=== PATIENT | male | born 1960 | race Caucasian/White ===

== ENCOUNTER → 2017-10-04 12:00 | Outpatient (CLI) | payer BC, SELFPAY ==
[2017-10-04 14:30] LABS: Anion Gap 8 (5-15); BUN 15 mg/dL (7-18); BUN/Creat Ratio 14.3 RATIO (10-20); Calcium,Total 8.3 mg/dL (8.5-10.1); Chloride 105 mmol/L (98-107); Cholesterol 132 mg/dL (200); Creatinine, Serum 1.05 mg/dL (0.70-1.30); EST Glomerular Filtration Rate 78 mL/min (>60); Est Glom Filt Rate - Afr Amer 94 mL/min (>60); Glucose 90 mg/dL (74-106); High Density Lipoprotein 35 mg/dL; PSA,Total - Annual Screen 0.77 ng/mL (0.00-4.00); Potassium 4.1 mmol/L (3.5-5.1); Sodium Level 137 mmol/L (136-145); Triglycerides 114 mg/dL; Very Low Density Lipoprotein 23 mg/dL (5-40)
== END ==
PROVIDERS: Family Provider Family Medicine; PCP Family Medicine; Visit Provider Family Medicine
DX: R03.0 Elevated blood-pressure reading, without diagnosis of hypertension (principal); Z12.5 Encounter for screening for malignant neoplasm of prostate
CPT/HCPCS: 36415; 80048; 80061; 84153; G0103

== ENCOUNTER → 2019-04-24 12:54 | Outpatient (CLI) | payer OTHER, SELFPAY ==
[2013-10-08 19:32] VITALS: BMI 26.2
--- NOTE | 2019-04-24 13:05 | RAD_ITS ---
STUDY: X-RAY - RIGHT KNEE REASON FOR EXAM: Male, 58 years old. Right knee pain. TECHNIQUE: 4 view(s) of the knee, 3 of which are labeled as upright. COMPARISON: None. FINDINGS: An incompletely defined 2.5 x 1.9 x 2.0 cm sclerotic densities noted in the medial femoral condyle. There is mild spurring of the tibial spines and very early degenerative periarticular lipping of the lateral tibial plateau. Well-defined, smoothly lobulated 2.3 x 1.0 x 1.5 cm ossific density adjacent to the tibial tubercle may be the sequelae of old healed avulsion injury at the insertion of the patellar tendon. Normal visualized proximal fibula. There is mild periarticular spurring of the base and apex of the patella. There is no demonstrated destructive osseous lesion or acute fracture. There is degenerative arthrosis of the medial femorotibial compartment with moderately severe joint space narrowing, slight lateral subluxation of the tibia relative to the femur, and a genu varus deformity. Normal lateral femorotibial compartment. There is borderline to mild degenerative arthrosis of the patellofemoral articulation. There is no demonstrated joint effusion. The soft tissue structures are unremarkable. RAD/Knee 4 or More Views IMPRESSION: 1. Degenerative changes of the right knee, as described, is prominent in the medial femorotibial compartment. 2. Elongated ossicle adjacent to the tibial tubercle may be the sequelae of old healed injury of the tibial insertion of the patellar tendon. 3. 2.5 cm sclerotic density in the medial femoral condyle may be a benign osteoma. Other pathology not excluded, however, and one might consider correlation with bone scan to determine if this is an active lesion. Electronically Signed: Keith Smyth MD at 18:50 EDT , Service support ,
== END ==
PROVIDERS: Family Provider Family Medicine; PCP Family Medicine; Referring Provider Family Medicine; Visit Provider Family Medicine
DX: M25.561 Pain in right knee (principal)
CPT/HCPCS: 73564

== ENCOUNTER → 2019-05-14 08:01 | Outpatient (CLI) | payer OTHER, SELFPAY ==
--- NOTE | 2019-05-14 08:04 | NM_ITS ---
CLINICAL: 59-year-old male with reported history of right knee pain. WHOLE BODY 99m Tc MDP RADIONUCLIDE BONE SCINTIGRAPHY COMPARISON: Plain film radiograph report right knee 04/24/2019 FINDINGS: Following the intravenous administration of 25.2 mCi of 99m Tc MDP, whole body bone images reveal: 1. Asymmetric increased radiopharmaceutical concentration is defined in the medial right femoral metaphysis-condyle corresponding to the radiographic abnormality noted on plain film x-ray report right knee 04/24/2019. 2. Facilitated tracer concentration is identified in the acromioclavicular and sternoclavicular compartments of both shoulders, bilateral wrist articulations, mid cervical spine posteriorly on the left, the patellofemoral and medial femoral compartments of the left knee. 3. The remaining skeletal structures are scintigraphically unremarkable with normal-appearing renal images and urinary bladder activity identified. NM/Bone Scan Whole Body IMPRESSION: 1. The increase in radiopharmaceutical concentration identified in the medial distal right femoral metaphysis appears to correlate with radiographic changes defined on plain film x-ray of the right knee dated 04/24/2019. 2. Degenerative arthritis appears expressed in the bilateral shoulder and wrist articulations, left knee, mid cervical spine. Electronically Signed: Jv Colin DO at 23:04 EDT Tel , Service support ,
== END ==
PROVIDERS: Family Provider Family Medicine; PCP Family Medicine; Referring Provider Family Medicine; Visit Provider Family Medicine
DX: M89.9 Disorder of bone, unspecified (principal)
CPT/HCPCS: 78306

== ENCOUNTER → 2019-06-18 07:14 | Outpatient (CLI) | payer OTHER, SELFPAY ==
--- NOTE | 2019-06-18 07:45 | MRI_ITS ---
STUDY: MRI LOWER EXTREMITY RIGHT THIGH WITH AND WITHOUT CONTRAST REASON FOR EXAM: Male, 59 years old. 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 IV Dotarem 17 was administered for the contrast portion of the examination. COMPARISON: X-ray's 04/24/2019, bone scan 05/14/2019 FINDINGS: Normal subcutis adipose space. Normal quadriceps, adductor and hamstring muscles. Normal quadriceps extensor mechanism with a normal rectus femoris, vastus medialis, intermedius and lateralis muscles. There is a 1.5 cm lesion which is hypointense on all sequences and without appreciable contrast enhancement or surrounding edema but with some irregular margins within the medial femoral condyle felt to likely represent a bone island. There is some marrow edema and inferior to this lesion likely consistent with subchondral edema. This likely corresponds to the uptake seen on MRI. Correlation with dedicated knee MR would be useful. MRI/Lower Ext No Joint W/WO Cont IMPRESSION: Suspect 1.5 cm bone island in the medial femoral condyle with probable medial compartment arthrosis. Correlation with dedicated knee MRI with contrast is recommended. Electronically Signed: Jv Vázquez MD at 12:08 EDT Tel , Service support ,
== END ==
PROVIDERS: Family Provider Family Medicine; PCP Family Medicine; Referring Provider Family Medicine; Visit Provider Family Medicine
DX: R94.8 Abnormal results of function studies of other organs and systems (principal)
CPT/HCPCS: 73720; A9575

== ENCOUNTER → 2019-10-28 07:28 | Outpatient (CLI) | payer OTHER, SELFPAY ==
--- NOTE | 2019-10-28 07:34 | MRI_ITS ---
STUDY: MRI LEFT ANKLE WITHOUT CONTRAST REASON FOR EXAM: Male, 59 years old. left plantar fasciitis vs tear, stress fx calcaneus, left heel pain TECHNIQUE: Standardized fat and water weighted pulse sequences were obtained in all 3 orthogonal planes. COMPARISON: None. FINDINGS: Normal subcutis adipose space. Normal posterior tibialis tendon. There is tenosynovitis of the flexor digitorum longus tendon sheath, without a tendinosis or tendon tear. There is tenosynovitis of the flexor hallucis longus tendon sheath, with an intrinsically normal tendon. Normal peroneus longus and brevis tendons. Normal tibialis anterior tendon. Normal extensor hallucis longus tendon. Normal extensor digitorum longus tendons. Normal Achilles tendon and teno-osseous insertion. There is a plantar fasciitis with plantar fascial thickening and fascial edema, but without a focal tear. Normal plantar calcaneal tubercles. Normal intrinsic muscles of the rearfoot. Normal distal tibiofibular syndesmotic ligamentous complex. Normal lateral ligamentous complex. Normal subtalar ligaments and sinus tarsi. Normal deltoid ligamentous complexes. Normal plantar calcaneonavicular (spring) ligament. Normal tibiotalar articulation. Normal talar dome. Normal subtalar articulations. Normal talonavicular articulation. Normal calcaneocuboid articulation. Normal navicular-cuneiform articulations. MRI/Lower Ext Joint Only (Routine) IMPRESSION: 1. Mild plantar fasciitis but no tear. 2. Mild tenosynovitis of the flexor digitorum longus and flexor hallucis longus tendons. Electronically Signed: Jv Vázquez MD at 9:06 EDT Tel , Service support ,
== END ==
PROVIDERS: PCP Family Medicine; Referring Provider Podiatrist; Visit Provider Podiatrist
DX: M72.2 Plantar fascial fibromatosis (principal); M84.375A Stress fracture, left foot, initial encounter for fracture; M79.672 Pain in left foot
CPT/HCPCS: 73721

== ENCOUNTER → 2019-11-14 07:48 | Outpatient (CLI) | payer OTHER, SELFPAY ==
--- NOTE | 2019-11-14 07:51 | ART_ITS ---
Reason For Study: Raynauds disease Procedure A bilateral lower extremity continuous wave Doppler with analog waveform analysis and ankle brachial indexes. Left Segmental Pressures Left brachial= 130mmHg. Left posterior tibial artery = 179mmHg. Left dorsalis pedis artery = 172mmHg. Left digit = 144 mmHg. The left dorsalis pedis waveforms are triphasic. The left posterior tibial artery waveforms are triphasic. Right Segmental Pressures Right brachial= 135mmHg. Right posterior tibial artery = 162mmHg. Right dorsalis pedis artery = 168mmHg. Right digit = 130 mmHg. The right dorsalis pedis waveforms are triphasic. The right posterior tibial artery waveforms are triphasic. Indices The right ankle brachial index by the dorsalis pedis is 1.24. The right ankle brachial index by the posterior tibial artery is 1.20. The right digital-brachial index is 0.96. The left ankle brachial index by the dorsalis pedis is 1.27. The left ankle brachial index by the posterior tibial artery is 1.33. The left digital-brachial index is 1.07. Interpretation Summary bilateral with triphasic flow and ERIC 1.24 and 1.33. Ordering Physician: Farhan Kilgore Referring Physician: Freeman Stevens MD Performed By: Henna Garner RVT
--- NOTE | 2019-11-14 07:51 | ADU_ITS ---
Reason For Study: Raynauds disease Right Velocities Left Velocities Ext. Iliac Artery, dist = 172.4 cm./sec. Ext Iliac Artery, dist = 120.5 cm./sec. Common Femoral Artery, mid = 128.6 cm./sec. Common Femoral Artery, mid = 96.4 cm./sec. Supf Femoral Artery, prox = 97.9 cm./sec. Supf. Femoral Artery, prox = 94.8 cm./sec. Supf Femoral Artery, mid = 111.2 cm./sec. Supf. Femoral Artery, mid = 102.1 cm./sec. Supf Femoral Artery, dist. = 78.3 cm./sec. Supf. Femoral Artery, dist = 74.6 cm./sec. Profunda Femoral Artery = 83 cm./sec. Profunda Femoral Artery = 76 cm./sec. Popliteal Artery, prox. = 71 cm./sec. Popliteal Artery, proximal, = 61.4 cm./sec. Popliteal Artery, mid = 55.9 cm./sec. Popliteal Artery, mid = 65.8 cm./sec. Popliteal Artery, dist = 65.8 cm./sec. Popliteal Artery, distal = 54.8 cm./sec. Post. Tibial Artery, prox = 88.3 cm./sec. Post. Tibial Artery, prox = 100.3 cm./sec. Post. Tibial Artery, mid = 105.8 cm./sec. Post Tibial Artery, mid = 102.1 cm./sec. Post. Tibial Artery, dist = 100.3 cm./sec. Post Tibial Artery, dist. = 129.5 cm./sec. Peroneal Artery, prox = 46.2 cm./sec. Peroneal Artery, prox = 33.9 cm./sec. Peroneal Artery, mid = 54.7 cm./sec. Peroneal Artery, mid = 50.5 cm./sec. Peroneal Artery,dist = 51.9 cm./sec. Peroneal Artery,dist. = 62.7 cm./sec. Ant. Tibial Artery, prox = 49 cm./sec. Ant.Tibial Artery, prox = 47.9 cm./sec. Ant. Tibial Artery, mid = 42.4 cm./sec. Ant Tibial Artery, mid = 40.9 cm./sec. Ant. Tibial Artery, dist = 52.8 cm./sec. Ant. Tibial Artery, distal = 49.6 cm./sec. Procedure Exam performed in department. Interpretation Summary No stenosis noted in eiher lower extremity with triphasic flow throuhout. Ordering Physician: Farhan Kilgore Referring Physician: Freeman Stevens MD Performed By: Henna Garner RVT
== END ==
PROVIDERS: PCP Family Medicine; Referring Provider Surgery Vascular Surgery; Visit Provider Surgery Vascular Surgery
DX: I73.00 Raynaud's syndrome without gangrene (principal); M79.676 Pain in unspecified toe(s)
CPT/HCPCS: 93922; 93925

== ENCOUNTER → 2020-08-18 10:37 | Outpatient (CLI) | payer BC, SELFPAY ==
[2013-10-08 19:32] VITALS: BMI 26.2
[2020-08-18 12:58] LABS: Anion Gap 5 (5-15); BUN 17 mg/dL (7-18); BUN/Creat Ratio 14.9 RATIO (10-20); Calcium,Total 8.8 mg/dL (8.5-10.1); Chloride 109 mmol/L (98-107); Creatinine, Serum 1.14 mg/dL (0.70-1.30); EST Glomerular Filtration Rate 70 mL/min (>60); Est Glom Filt Rate - Afr Amer 85 mL/min (>60); Glucose 71 mg/dL (74-106); Magnesium 2.1 mg/dL (1.6-2.6); PSA,Total - Annual Screen 1.01 ng/mL (0.00-4.00); Potassium 4.1 mmol/L (3.5-5.1); Sodium Level 141 mmol/L (136-145); Thyroid Stim Hormone (TSH) 2.08 uIU/mL (0.358-3.74)
[2020-08-19 07:11] LABS: SARS-COV-2 TOTAL ABS Nonreactive (Nonreactive)
== END ==
PROVIDERS: PCP Family Medicine; Referring Provider Family Medicine; Visit Provider Family Medicine
DX: R00.2 Palpitations (principal); Z20.828 Contact with and (suspected) exposure to other viral communicable diseases; Z12.5 Encounter for screening for malignant neoplasm of prostate
CPT/HCPCS: 36415; 80048; 83735; 84153; 84443; 86769; G0103

== ENCOUNTER → 2020-11-26 11:53 | Outpatient (CLI) | payer BC, SELFPAY ==
--- NOTE | 2020-11-26 11:56 | RAD_ITS ---
INDICATION: PAIN IN LEFT KNEE EXAMINATION/TECHNIQUE: X-RAY - LEFT XR Knee Complete 4 Views or More COMPARISON: None. FINDINGS: No acute fracture or malalignment. Minimal, medial compartment predominant, tricompartmental joint space narrowing and osteophytosis. No joint effusion. The soft tissues are unremarkable. RAD/Knee 4 or More Views IMPRESSION: Minimal, medial compartment predominant, tricompartmental degenerative arthrosis of the knee. Electronically Signed: Freeman Harman MD at 16:48 EDT Tel , Service support ,
== END ==
PROVIDERS: PCP Family Medicine; Referring Provider Family Medicine; Visit Provider Family Medicine
DX: M25.562 Pain in left knee (principal)
CPT/HCPCS: 73564

== ENCOUNTER → 2021-07-05 09:33 | Outpatient (CLI) | payer BC, SELFPAY ==
[2021-07-05 12:22] LABS: Anion Gap 5 (5-15); BUN 20 mg/dL (7-18); BUN/Creat Ratio 17.5 RATIO (10-20); Calcium,Total 8.8 mg/dL (8.5-10.1); Chloride 109 mmol/L (98-107); Creatinine, Serum 1.14 mg/dL (0.70-1.30); EST Glomerular Filtration Rate 70 mL/min (>60); Est Glom Filt Rate - Afr Amer 84 mL/min (>60); Glucose 91 mg/dL (74-106); Potassium 3.9 mmol/L (3.5-5.1); Sodium Level 141 mmol/L (136-145)
[2021-07-05 12:25] LABS: Hematocrit 41.7 % (40-54); Hemoglobin 14.6 g/dL (13.0-16.5); Mean Corpuscular Hgb 31.7 pg (27.0-32.0); Mean Corpuscular Volume 90.7 fL (80-94); Mean Platelet Vol. 9.7 fl (6.2-12.0); Platelet Count 200 K/mm3 (150-450); RBC Distribution Width CV 11.6 % (11.6-14.6); RBC Distribution Width SD 38.8 fl (35.1-43.9)
== END ==
PROVIDERS: PCP Family Medicine; Referring Provider Student in an Organized Health Care Education/Training Program; Visit Provider Student in an Organized Health Care Education/Training Program
DX: Z01.818 Encounter for other preprocedural examination (principal)
CPT/HCPCS: 36415; 80048; 85027

== ENCOUNTER 2021-08-23 15:02 | Outpatient (CLI) | payer BC, SELFPAY ==
[2021-08-23 16:05] LABS: Hemoglobin 14.2 g/dL (13.0-16.5); Mean Corp Hgb Conc 33.8 g/dL (32-36); Mean Corpuscular Hgb 30.9 pg (27.0-32.0); Mean Corpuscular Volume 91.3 fL (80-94); Mean Platelet Vol. 9.9 fl (6.2-12.0); Platelet Count 206 K/mm3 (150-450); RBC Distribution Width CV 11.7 % (11.6-14.6); RBC Distribution Width SD 39.2 fl (35.1-43.9); White Blood Count 7.8 K/mm3 (4.4-11.0)
[2021-08-23 16:30] LABS: Anion Gap 5 (5-15); BUN 22 mg/dL (7-18); BUN/Creat Ratio 20.8 RATIO (10-20); Calcium,Total 8.9 mg/dL (8.5-10.1); Chloride 109 mmol/L (98-107); Creatinine, Serum 1.06 mg/dL (0.70-1.30); EST Glomerular Filtration Rate 76 mL/min (>60); Est Glom Filt Rate - Afr Amer 92 mL/min (>60); Glucose 92 mg/dL (74-106); PSA,Total - Annual Screen 1.08 ng/mL (0.00-4.00); Potassium 4.4 mmol/L (3.5-5.1); Sodium Level 141 mmol/L (136-145)
[2021-08-23 16:31] LABS: Vitamin D,25 Hydroxy 20.5 ng/mL
[2021-08-23 17:10] LABS: International Normalized Ratio 1.3
== END 2021-08-23 23:59 | disposition short-term general hospital (02) ==
LOC: MTLAB 15:03
PROVIDERS: PCP Family Medicine; Referring Provider Family Medicine; Visit Provider Family Medicine
DX: Z01.818 Encounter for other preprocedural examination (principal); Z12.5 Encounter for screening for malignant neoplasm of prostate
CPT/HCPCS: 36415; 80048; 82306; 84153; 85027; 85610; 85730; G0103

== ENCOUNTER 2021-09-02 07:57 | Outpatient (CLI) | payer BC, SELFPAY ==
--- NOTE | 2021-09-02 08:02 | CT_ITS ---
STUDY: CT LEFT LOWER EXTREMITY WITHOUT CONTRAST REASON FOR EXAM: Left knee osteoarthritis, surgical planning. TECHNIQUE: Transaxial CT imaging of the lower extremity was performed. Coronal and sagittal images were reformatted. Individualized dose optimization techniques were used for this CT. COMPARISON: Radiographs 11/26/2020. FINDINGS: Knee: There is joint space narrowing and eburnation of the medial femorotibial compartment (coronal reconstruction 30). Normal lateral femoral condyle and lateral tibial plateau. There is preservation of the articular joint space of the lateral knee compartment. There are minimal marginal osteophytes and mild joint space narrowing of the patellofemoral compartment (sagittal reconstruction 40). Normal proximal tibiofibular articulation. There is no joint effusion. The quadriceps tendon is grossly normal. The patellar tendon is grossly normal. Normal Hoffa''s fat pad. There is very mild vascular calcification. Hip: There is joint space narrowing of the superior medial left hip (coronal reconstruction 46) and a small subchondral cyst in the anterior acetabulum. Ankle: Normal tibiotalar, posterior subtalar and talonavicular articulations. CT/Extremity Lower without Contra IMPRESSION: Left knee osteoarthritis. Electronically Signed: Harinder Walters MD at 14:56 EST ,
== END 2021-09-02 23:59 | disposition short-term general hospital (02) ==
LOC: CT 07:58
PROVIDERS: PCP Family Medicine; Referring Provider Specialist; Visit Provider Specialist
DX: M21.162 Varus deformity, not elsewhere classified, left knee (principal)
CPT/HCPCS: 73700

== ENCOUNTER 2021-09-20 06:16 | Emergency (ER) | payer BC, SELFPAY ==
[2021-09-20 06:18] VITALS: BP 120/73; PULSE 61; RESP 23; TEMP 36.3; O2SAT 100; BMI 26.9
[2021-09-20 06:24] VITALS: O2SAT 100
--- NOTE | 2021-09-20 06:34 | ED.RN ---
PT VERY ANXIOUS UPON ARRIVAL. PT STATES HE'S BURNING UP, NO FEVER. ICE PACKS APPLIED. PT HYPERVENTILATING. EMOTIONAL SUPPORT PLACED. AT BEDSIDE. OXYGEN PLACED FOR EMOTIONAL SUPPORT. IV PLACED. PENDING MD.
--- NOTE | 2021-09-20 06:51 | CT_ITS ---
HISTORY: Dyspnea EXAMINATION: CTA Chest W/ Contrast Injection (and W/O Contrast Images if performed) TECHNIQUE: Helically acquired images were obtained of the chest following IV contrast as per pulmonary angiogram protocol with MIP and MPR reconstructions. A radiation dose optimization technique was used for this scan. IV Contrast dosage and agent: 100mL Isovue-370 COMPARISON: None FINDINGS: LUNGS, PLEURA AND LARGE AIRWAYS: Trace dependent hypoventilatory changes. No pulmonary edema, mass or consolidation. Airways are patent. No pleural effusion or pleural thickening. No pneumothorax. PULMONARY ARTERIES: No pulmonary arterial filling defects identified. AORTA AND GREAT VESSELS: Ectatic ascending aorta measures up to 4.2 cm diameter with gradual tapering along the aortic arch. No aortic dissection demonstrated. Mild scattered atherosclerotic calcifications. Great vessels are patent. HEART AND PERICARDIUM: Heart slightly enlarged. No significant pericardial effusion. MEDIASTINUM AND DINORA: No pathologically enlarged mediastinal or hilar lymph nodes. Esophagus is unremarkable. THYROID: Unremarkable as visualized. UPPER ABDOMEN: No acute pathology. BONES: Intact with no suspicious osseous lesion. SOFT TISSUES: No acute findings. CT/CTA Chest W/WO Contrast IMPRESSION: 1. No pulmonary embolus identified. 2. Ectatic proximal thoracic aorta with mild cardiomegaly. Individualized dose optimization techniques were used for this CT. at 0817 Reported and signed by: Cristian Henderson MD Electronically Signed: Cristian Henderson MD at 8:16 EST ,
--- NOTE | 2021-09-20 06:51 | EKG12_ITS ---
Test Reason : SOB Blood Pressure : / mmHG Vent. Rate : 050 BPM Atrial Rate : 050 BPM P-R Int : 134 ms QRS Dur : 132 ms QT Int : 502 ms P-R-T Axes : 064 -46 000 degrees QTc Int : 457 ms Sinus bradycardia with Premature supraventricular complexes Right bundle branch block Left anterior fascicular block Bifascicular block Abnormal ECG Confirmed by ZEENAT GUSTAFSON, FORREST ([id number]), production editor ALEXY TITUS ([id number]) on 09/21/2021 8:34:37 AM Referred By: GEORGINA Confirmed By:FORREST EPPERSON MD
--- NOTE | 2021-09-20 06:52 | ED.VIS.DYS ---
HPI History of Present Illness Chief Complaint: Shortness of Breath Informant: patient Onset/Context/Timing Onset: Yesterday Context: gradual Timing: Intermittent Quality: Positive for Orthopnea Worsened by: Lying flat Relieved by: - (Walking) Associated Symptoms fever, subjective and sweats; Negative for cough, rhinorrhea, ear pain, sore throat, clear sputum, white sputum, yellow sputum or green sputum Narrative Narrative: Patient presents with shortness of breath that began yesterday. Patient states he became worse today. Patient states his breathing is worse whenever he lays flat. Patient states he feels better when he is up and ambulating. Patient admits to subjective fevers and sweats. Patient denies any chest pain. Patient denies any cough. Patient denies any sore throat or rhinorrhea. Patient had a recent left partial knee replacement. PE Risk Factors: Positive for Recent surgery; Negative for Cancer, OCP + Smoking + > 35 and Prior DVT or PE PFSH PFSH Home Medications hydrocodone-acetaminophen 1 - 2 tab PO Q4H PRN PRN #20 tablet 10/08/13 [Rx Last Taken Unknown] aspirin [Aspirin Low Dose] 81 mg PO DAILY 09/20/21 [History Last Taken Unknown] famotidine 20 mg PO DAILY 09/20/21 [History Last Taken Unknown] meloxicam 7.5 mg PO DAILY 09/20/21 [History Last Taken Unknown] oxycodone 5 mg PO Q4H PRN 09/20/21 [History Last Taken Unknown] Allergy/AdvReac Type Severity Reaction Status Date / Time No Known Allergies Allergy Verified 10/08/13 19:36 Surgical History (Updated 09/20/21 @ 06:[address] Jorje Stephens DO) History of partial knee replacement Hx of arthroscopy of right knee Social History Smoking Status: Current every day smoker tobacco type: cigars ROS ROS ED Constitutional Constitutional ED: Reports fever(s), subjective and sweats; Denies chills Eyes Eyes: Denies blurry vision or change in vision ENT ENT ED: Denies rhinorrhea or sore throat Cardiovascular Cardiovascular: Denies chest pain or palpitations Respiratory/Chest Respiratory/Chest: Reports dyspnea; Denies cough Gastrointestinal Gastrointestinal: Reports nausea; Denies vomiting Genitourinary Genitourinary ED: Denies dysuria or hematuria Musculoskeletal Musculoskeletal: Denies back pain or neck pain Integumentary Denies abscess or rash Neurologic Neurologic: Denies headache(s) or weakness Allergic/Immunologic Allergic/Immunologic ED: Denies mouth swelling or urticaria EXAM Physical Exam Const Vital Signs: 09/20/21 06:18 09/20/21 06:24 Temperature 97.4 F L Temperature Source Temporal Pulse Rate 61 Respiratory Rate 23 H Respiratory Effort Non-Labored Respiratory Depth Normal Respiratory Pattern Normal Blood Pressure 120/73 Blood Pressure Mean 88 Pulse Ox 100 100 Oxygen Delivery Method Room Air Nasal Cannula Oxygen Flow Rate (L/min) 2 Positive well nourished and well developed General Appearance ED: well developed HEENT Reports moist mucous membranes Neck supple and no JVD Resp normal respiratory effort and clear to auscultation bilaterally Cardio regular rate, regular rhythm and no murmurs GI normal to inspection, nondistended, normoactive bowel sounds and non-tender Palpation: soft Extremity normal to inspection General Extremety ED: Negative for edema or tenderness General Extremity: Negative for edema Neuro oriented x3, CN's II-XII intact bilaterally and no sensory deficits noted Sensorium / Orientation: alert Motor Exam: strength 5/5 throughout Psych Mood & Affect: anxious Skin no rashes or lesions noted MDM MDM MDM Narrative Medical decision making narrative: Patient was given a dose of Ativan here. CBC, comprehensive metabolic profile, PT with INR, PTT, and troponin were ordered and are essentially within normal limits. CTA of the chest was ordered and is pending. EKG was obtained. On my interpretation, it shows sinus bradycardia with occasional PACs. There is a right bundle branch block pattern noted. There is a left anterior fascicular block. There are no acute ST or T wave changes. Care of the patient was turned over to the oncoming physician. Lab Data Labs: Laboratory Results - last 24 hr 09/20/21 09/20/21 09/20/21 06:30 06:30 06:30 WBC 8.3 RBC 4.44 L Hgb 13.6 Hct 41.6 MCV 93.7 MCH 30.6 MCHC 32.7 RDW Std Deviation 41.1 RDW Coeff of Tyrell 11.9 Plt Count 223 MPV 10.9 Immature Gran % (Auto) 0.200 Neut % (Auto) 44.1 L Lymph % (Auto) 37.4 [place] % (Auto) 15.5 H Eos % (Auto) 2.2 Baso % (Auto) 0.6 Absolute Neuts (auto) 3.7 Absolute Lymphs (auto) 3.09 Nucleated RBC % 0 PT 13.3 INR 1.1 APTT 31.0 Sodium 137 Potassium 4.1 Chloride 105 Carbon Dioxide 26.0 Anion Gap 6 BUN 18 Creatinine 1.07 Estim Creat Clear Calc 80.58 Est GFR (MDRD) Af Amer 91 Est GFR (MDRD) Non-Af 75 BUN/Creatinine Ratio 16.8 Glucose 73 L Calcium 8.7 Total Bilirubin 0.60 AST 57 H ALT 59 Alkaline Phosphatase 117 Troponin I High Sens 8 Total Protein 7.4 Albumin 3.5 Globulin 3.9 Albumin/Globulin Ratio 0.9 EKG Initial EKG: Attestation: I personally reviewed and interpreted this EKG as follows: Interpretation: Sinus Bradycardia (50 with occasional PACs), RBBB and LAFB Discharge Plan Triage Chief Complaint: Shortness of Breath ED Provider: Jorje Stephens Dx/Rx/DC Orders Prescriptions: No Action hydrocodone-acetaminophen 1 TABLET tablet 1 - 2 tab PO Q4H PRN PRN (Reason: Pain) Qty: 20 RF: 0 aspirin [Aspirin Low Dose] 81 mg Tablet,Delayed Release (Dr/Ec) 81 mg PO DAILY RF: 0 meloxicam 7.5 mg Tablet 7.5 mg PO DAILY RF: 0 famotidine 20 mg Tablet 20 mg PO DAILY RF: 0 oxycodone 5 mg Capsule 5 mg PO Q4H PRN (Reason: Pain) RF: 0 Primary Care Provider: Radames Stevens
--- NOTE | 2021-09-20 06:54 | NURSING ---
NO OLD EKGS
[2021-09-20] MEDS: LORazepam 2 MG/ML Syringe 1 MG IV (07:03)
[2021-09-20 07:04] LABS: Absolute Lymphocyte Count 3.09 X10^3/uL (0.83-4.51); Absolute Neutrophil Count 3.7 X10^3/uL (2.0-7.7); Basophil# 0.05 X10^3/uL; Basophil% 0.6 % (0-1); Eosinophil# 0.18 X10^3/uL; Eosinophils% 2.2 % (0-5); Hematocrit 41.6 % (40-54); Hemoglobin 13.6 g/dL (13.0-16.5); Lymphocyte # 3.09 X10^3/ul (0.83-4.51); Lymphocyte % 37.4 % (19-41); Mean Corp Hgb Conc 32.7 g/dL (32-36); Mean Corpuscular Hgb 30.6 pg (27.0-32.0); Mean Corpuscular Volume 93.7 fL (80-94); Mean Platelet Vol. 10.9 fl (6.2-12.0); Monocyte# 1.28 X10^3/uL; Monocyte% 15.5 % (0-10); NRBC Flagged by Analyzer 0 % (0-5); Neutrophil # 3.65 X10^3/uL (2.7-7.7); Neutrophil % 44.1 % (47-70); Platelet Count 223 K/mm3 (150-450); RBC Distribution Width CV 11.9 % (11.6-14.6); RBC Distribution Width SD 41.1 fl (35.1-43.9); Red Blood Count 4.44 M/mm3 (4.6-6.2); White Blood Count 8.3 K/mm3 (4.4-11.0)
[2021-09-20 07:09] LABS: International Normalized Ratio 1.1; Prothrombin Time (Protime)PT. 13.3 SECONDS (11.7-14.9)
[2021-09-20 07:14] LABS: ALB/GLOB Ratio 0.9 RATIO (0.9-2.4); AST(SGOT) 57 U/L (15-37); Alanine Aminotransfer ALT/SGPT 59 U/L (16-61); Albumin, Serum 3.5 g/dL (3.2-5.0); Alkaline Phosphatase 117 U/L (45-117); Anion Gap 6 (5-15); BUN 18 mg/dL (7-18); BUN/Creat Ratio 16.8 RATIO (10-20); Calcium,Total 8.7 mg/dL (8.5-10.1); Chloride 105 mmol/L (98-107); Creatinine, Serum 1.07 mg/dL (0.70-1.30); EST Glomerular Filtration Rate 75 mL/min (>60); Est Glom Filt Rate - Afr Amer 91 mL/min (>60); Estimated Creatinine Clearance 80.58 ml/min; Globulin 3.9 g/dL (2.2-4.2); Glucose 73 mg/dL (74-106); Potassium 4.1 mmol/L (3.5-5.1); Protein, Total 7.4 g/dL (6.4-8.2); Sodium Level 137 mmol/L (136-145); Troponin-I HS 8 pg/mL (3.0-78.0)
[2021-09-20 08:08] VITALS: BP 148/69; PULSE 42; O2SAT 97
== END 2021-09-20 09:04 | disposition home or self-care (01) ==
PROVIDERS: Emergency Provider Emergency Medicine; PCP Family Medicine; Visit Provider Emergency Medicine
DX: R06.02 Shortness of breath (principal); Z96.652 Presence of left artificial knee joint; F17.290 Nicotine dependence, other tobacco product, uncomplicated; R00.1 Bradycardia, unspecified; I45.2 Bifascicular block; R06.01 Orthopnea; Z79.1 Long term (current) use of non-steroidal anti-inflammatories (NSAID); Z79.82 Long term (current) use of aspirin; Z79.899 Other long term (current) drug therapy
CPT/HCPCS: 71275; 80053; 84484; 85025; 85610; 85730; 93005; 96374; 99285; Q9967; A4216

== ENCOUNTER → 2022-09-15 | Outpatient (CLI) | payer BC, SELFPAY ==
[2022-09-15 12:13] LABS: Hematocrit 43.7 % (40-54); Hemoglobin 14.8 g/dL (13.0-16.5); Mean Corp Hgb Conc 33.9 g/dL (32-36); Mean Corpuscular Hgb 31.2 pg (27.0-32.0); Mean Corpuscular Volume 92.2 fL (80-94); Mean Platelet Vol. 10.4 fl (6.2-12.0); Platelet Count 206 K/mm3 (150-450); Red Blood Count 4.74 M/mm3 (4.6-6.2)
[2022-09-15 13:40] LABS: Anion Gap 9 (5-15); BUN 18 mg/dL (7-18); BUN/Creat Ratio 16.2 RATIO (10-20); Chloride 106 mmol/L (98-107); Cholesterol 148 mg/dL (200); Creatinine, Serum 1.11 mg/dL (0.70-1.30); EST Glomerular Filtration Rate 72 mL/min (>60); Est Glom Filt Rate - Afr Amer 87 mL/min (>60); Glucose 73 mg/dL (74-106); High Density Lipoprotein 41 mg/dL; PSA,Total - Annual Screen 1.12 ng/mL (0.00-4.00); Sodium Level 140 mmol/L (136-145); Triglycerides 138 mg/dL; Very Low Density Lipoprotein 28 mg/dL (5-40)
== END | disposition home or self-care (01) ==
LOC: MFPLAB 10:03
PROVIDERS: PCP Family Medicine; Referring Provider Family Medicine; Visit Provider Family Medicine
DX: Z12.5 Encounter for screening for malignant neoplasm of prostate (principal); Z13.1 Encounter for screening for diabetes mellitus; R53.83 Other fatigue; Z13.220 Encounter for screening for lipoid disorders; E55.9 Vitamin D deficiency, unspecified
CPT/HCPCS: 36415; 80048; 80061; 82306; 84153; 84403; 84443; 85027; G0103

== ENCOUNTER → 2023-09-18 | Outpatient (CLI) | payer BC, SELFPAY ==
[2023-09-18 12:50] LABS: Vitamin D,25 Hydroxy 25.3 ng/mL
[2023-09-18 13:35] LABS: Anion Gap 5 (5-15); BUN 17 mg/dL (7-18); BUN/Creat Ratio 14.9 RATIO (10-20); Calcium,Total 8.9 mg/dL (8.5-10.1); Chloride 110 mmol/L (98-107); Cholesterol 177 mg/dL (200); Creatinine, Serum 1.14 mg/dL (0.70-1.30); EST Glomerular Filtration Rate 69 mL/min (>60); Est Glom Filt Rate - Afr Amer 84 mL/min (>60); Glucose 82 mg/dL (74-106); High Density Lipoprotein 41 mg/dL; PSA,Total - Annual Screen 1.02 ng/mL (0.00-4.00); Potassium 3.7 mmol/L (3.5-5.1); Sodium Level 139 mmol/L (136-145); Triglycerides 88 mg/dL; Very Low Density Lipoprotein 18 mg/dL (5-40)
== END | disposition home or self-care (01) ==
LOC: MFPLAB 10:02
PROVIDERS: PCP Family Medicine; Visit Provider Family Medicine
DX: Z12.5 Encounter for screening for malignant neoplasm of prostate (principal); Z13.220 Encounter for screening for lipoid disorders; Z13.1 Encounter for screening for diabetes mellitus; R79.89 Other specified abnormal findings of blood chemistry
CPT/HCPCS: 36415; 80048; 80061; 82306; 84153; G0103

== ENCOUNTER → 2024-10-17 | Outpatient (CLI) | payer BC, SELFPAY ==
[2024-10-17 16:04] LABS: Anion Gap 8 (5-15); BUN 19 mg/dL (4-19); BUN/Creat Ratio 16.7 RATIO (10-20); Calcium 9.3 mg/dL (7.6-11.0); Carbon Dioxide 25.2 mmol/L (22.0-29.0); Chloride 105 mmol/L (96-108); Creatinine, Serum 1.1 mg/dL (0.8-1.3); EST Glomerular Filtration Rate 75 (>60); Glucose 85 mg/dL (70-99); Potassium 4.3 mmol/L (3.3-5.1); Sodium Level 138 mmol/L (133-145)
== END | disposition home or self-care (01) ==
LOC: MFPLAB 11:14
PROVIDERS: PCP Family Medicine; Referring Provider Family Medicine; Visit Provider Family Medicine
DX: R03.0 Elevated blood-pressure reading, without diagnosis of hypertension (principal); Z12.5 Encounter for screening for malignant neoplasm of prostate
CPT/HCPCS: 36415; 80048; 82306; 84153; G0103

== ENCOUNTER → 2025-07-14 | Outpatient (CLI) | payer BC, SELFPAY ==
[2025-07-14 10:47] LABS: Hematocrit 43.7 % (40-54); Hemoglobin 14.6 g/dL (13.0-16.5); Mean Corp Hgb Conc 33.4 g/dL (32-36); Mean Corpuscular Volume 92.8 fL (80-94); Mean Platelet Vol. 10.2 fl (6.2-12.0); Platelet Count 218 K/mm3 (150-450); RBC Distribution Width CV 11.8 % (11.6-14.6); RBC Distribution Width SD 40.6 fl (35.1-43.9); Red Blood Count 4.71 M/mm3 (4.6-6.2); White Blood Count 7.6 K/mm3 (4.4-11.0)
[2025-07-14 11:37] LABS: Anion Gap 9 (5-15); BUN 17 mg/dL (4-19); BUN/Creat Ratio 13.7 RATIO (10-20); Calcium,Total 8.9 mg/dL (7.6-11.0); Carbon Dioxide 25.8 mmol/L (21.0-32.0); Chloride 106 mmol/L (98-108); Glucose 86 mg/dL (70-99); Magnesium 2.2 mg/dL (1.5-2.2); Potassium 4.1 mmol/L (3.3-5.1)
== END | disposition home or self-care (01) ==
LOC: MFPLAB 09:02
PROVIDERS: PCP Family Medicine; Visit Provider Family Medicine
DX: I48.91 Unspecified atrial fibrillation (principal)
CPT/HCPCS: 36415; 80048; 83735; 84443; 85027

== ENCOUNTER → 2025-08-13 | Outpatient (CLI) | payer BC, SELFPAY ==
--- NOTE | 2025-08-13 08:53 | ECHOD_ITS ---
Reason For Study Reason For Study: TAA Procedure This was a 2D Doppler, Color Flow transthoracic echocardiogram. Exam performed in department. Left Ventricle Normal-sized left ventricle. Normal left ventricular wall thickness. Normal left ventricular systolic function, with EF by Avalos's biplane: 68%. Normal left ventricular diastolic function. No regional wall motion abnormalities noted. Right Ventricle Borderline dilated right ventricle. Normal systolic function. RVSP estimated at 35 mmHg. Atria The left and right atria are normal. Right atrial pressure estimated at: 8 mmHg. Mitral Valve Normal mitral valve. Trace mitral regurgitation. No mitral stenosis. Tricuspid Valve Normal tricuspid valve. Mild tricuspid regurgitation. No tricuspid stenosis. Aortic Valve Trileaflet aortic valve. Mild aortic regurgitation. No hemodynamically significant aortic stenosis. Pulmonic Valve Normal pulmonic valve. Trace pulmonic regurgitation. No pulmonic stenosis. Great Vessels Dilated thoracic aorta. Diameter: 4.3 cm. Pericardium/Pleural No pericardial effusion. MMode/2D Measurements & Calculations LVIDd: 5.3 cm IVSd: 0.83 cm asc Aorta Diam: 4.2 cm LVIDs: 3.5 cm LVPWd: 0.92 cm RVDd: 4.4 cm FS: 34.1 % LAV(MOD-bp): 65.0 ml LVAd ap4: 28.6 cm2 LVAd ap2: 32.3 cm2 LAV(MOD-bp) Indexed: 31.5 ml/m2 LVLd ap4: 8.0 cm LVLd ap2: 8.0 cm LAV(MOD-sp2): 62.8 ml EDV(MOD-sp4): 82.7 ml EDV(MOD-sp2): 109.2 ml LAV(MOD-sp4): 63.0 ml EDV(sp4-el): 86.4 ml EDV(sp2-el): 111.1 ml LVAs ap4: 14.2 cm2 LVAs ap2: 15.7 cm2 LVLs ap4: 6.1 cm LVLs ap2: 5.9 cm ESV(MOD-sp4): 28.5 ml ESV(MOD-sp2): 34.4 ml ESV(sp4-el): 28.1 ml ESV(sp2-el): 35.5 ml EF(MOD-sp4): 65.5 % EF(MOD-sp2): 68.5 % EF(sp4-el): 67.5 % SV(MOD-sp4): 54.2 ml SV(MOD-sp2): 74.8 ml EDV(MOD-bp): 96.1 ml SI(MOD-sp4): 26.2 ml/m2 SI(MOD-sp2): 36.2 ml/m2 ESV(MOD-bp): 30.7 ml EF(MOD-bp): 68.1 % SV(sp4-el): 58.4 ml LA dimension(2D): 4.1 cm LA A4 area: 21.1 cm2 RA A4 area: 16.0 cm2 TAPSE: 2.1 cm Time Measurements MV dec time: 0.20 sec Doppler Measurements & Calculations MV E max kevin: 95.5 cm/sec Lat Peak E' Kevin: 12.0 cm/sec Med Peak E' Kevin: 9.4 cm/sec MV A max kevin: 77.3 cm/sec E/E' lat: 7.9 E/E' med: 10.2 MV E/A: 1.2 Ao V2 max: 193.9 cm/sec LV V1 max: 167.2 cm/sec MV dec slope: 473.5 cm/sec2 Ao max P.0 mmHg LV V1 max P.2 mmHg Ao V2 mean: 134.3 cm/sec LV V1 mean P.1 mmHg Ao mean P.0 mmHg LV V1 mean: 115.5 cm/sec Ao V2 VTI: 41.4 cm LV V1 VTI: 37.9 cm AV (velocity ratio): 0.92 PA V2 max: 111.9 cm/sec TR max kevin: 256.9 cm/sec TR max P.4 mmHg ECHO/Echo Complete Interpretation Summary Normal left ventricular systolic function, with EF by Avalos's biplane: 68%. Normal left ventricular diastolic function. Normal right ventricular systolic function Mild aortic regurgitation Dilated thoracic aorta. Diameter: 4.3 cm. Recommend routine surveillance of thoracic aortic dilation in 1 to 2 years. Ordering Physician: Francisco Orr Referring Physician: Freeman Stevens Performed By: Madelin Catalan RDCS
--- OUTSIDE RECORDS SUMMARY | 2025-08-13 09:11 | XMS RPT_ITS | CCD ---
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 Tasia Howe MD Primary Care Provider Rodney GUSTAFSON, Dr. Millard Attending Provider [phone] Dr. Tasia Stevens MD Referring Provider Allergies Allergy Classification Reported Allergen(s) Allergy Type Date of Onset Reaction(s) Facility (1 source) Codeine; Translations: [CODEINE] Drug Allergy [facility] Repository Medications Current Medications Medication Drug Class(es) Dates Sig (Normalized) Sig (Original) acetaminophen 325 mg / HYDROcodone bitartrate 5 mg oral tablet (3 sources) Opioid Agonist Start: 10-08-2013 Hydrocodone-Acetam inophen 1 TABLET tablet Active 1 - 2 {tbl} PO EVERY 4 HOURS NEEDED as needed for Pain October 08, 2013 1:00am Start: 10-08-2013 take 1 tablet by jorge th every four hours as needed Hydrocodone-Acetaminophen Active 1 - 2 TABLET PO EVERY 4 HOURS NEEDED October 08, 2013 12:00am aspirin 81 mg delayed release oral tablet (3 sources) Platelet Aggregation Inhibitor, Nonsteroidal Anti-inflammatory Drug Start: 09-20-2021 take 1 tablet by mouth once daily Aspirin (Aspirin Low Dose) 81 mg Tablet,Delayed Release (Dr/Ec) Active 81 mg PO DAILY September 20, 2021 1:00am famotidine 20 mg oral tablet (3 sources) Histamine-2 Receptor Antagonist Start: 09-20-2021 take 1 tablet by mouth once daily Famotidine 20 mg Tablet Active 20 mg PO DAILY September 20, 2021 1:00am LORazepam 0.5 mg oral tablet (3 sources) Benzodiazepine Start: 09-20-2021 take 1 tablet by mouth three times daily as needed for anxiety Lorazepam (Ativan) 0.5 mg tablet Active 0.5 mg PO THREE TIMES A DAY as needed for anxiety September 20, 2021 1:00am meloxicam 7.5 mg oral tablet (3 sources) Nonsteroidal Anti-inflammatory Drug Start: 09-20-2021 take 1 tablet by mouth once daily Meloxicam 7.5 mg Tablet Active 7.5 mg PO DAILY September 20, 2021 1:00am oxyCODONE hydrochloride 5 mg oral capsule (3 sources) Opioid Agonist Start: 09-20-2021 take 1 capsule by mouth every four hours as needed for pain Oxycodone 5 mg Capsule Active 5 mg PO Q4H as needed for Pain September 20, 2021 1:00am Problems Problem Classification Problem Date Documented Da te Episodic/Chronic Anxiety disorders (3 sources) Anxiety; Translations: [Anxiety disorder, unspecified] 09-28-2021 Chronic Other circulatory disease (1 source) Elevated blood-pressure reading, without diagnosis of hypertension; Translations: [Elevated blood-pressure reading, without diagnosis of hypertension] Onset: 10-29-2024 Episodic Other lower respiratory disease (3 sources) Dyspnea; Translations: [Dyspnea, unspecified] 09-28-2021 Episodic Unclassified (2 sources) Raynaud's syndrome with gangrene Onset: 08-20-2018 Results Test Name Value Interpretation Reference Range Facility BUN/creatinine ratioOrdered By: Tasia Stevesn on 10-17-2024 Urea nitrogen/Creatinine [Mass ratio] 16.7 mg/mg 10-20 [facility] Basic Metabolic Profile (BMP )on 10-17-2024 Anion gap [Moles/Vol] 8 mmol/L Normal 5-15 [facility] Comment on above: Order Comment: Order Date: 10/17/24 Order Info: 06-1 - BMP Order Info: [id number] - PSA Performed By: #### L 500.2500 #### [facility] [address] [place], [address] BUN/CRE 16.7 RATIO Normal 10-20 [facility] Comment on above: Order Comment: Order Date: 10/17/24 Order Info: 666-08 - BMP Order Info: 2856-08 - PSA Performed By: #### L 500.2500 #### [facility] [address] [place], [address] Calcium [Mass/Vol] 9.3 mg/dL Normal 7.6-11.0 [facility] Comment on above: Order Comment: Order Date: 10/17/24 Order Info: 666-08 - BMP Order Info: 2856-08 - PSA Performed By: #### L 500.2500 #### [facility] [address] [place], [address] Chloride [Moles/Vol] 105 mmol/L Normal 96-108 [facility] Comment on above: Order Comment: Order Date: 10/17/24 Order Info: 06 - BMP Order Info: [id number] - PSA Performed By: #### L 500.2500 #### [facility] [address] [place], [address] CO2 [Moles/Vol] 25.2 mmol/L Normal 22.0-29.0 [facility] Comment on above: Order Comment: Order Date: 10/17/24 Order Info: 06- - BMP Order Info: [id number] - PSA Performed By: #### L 500.2500 #### [facility] [address] [place], [address] Creatinine [Mass/Vol] 1.1 mg/dL Normal 0.8-1.3 [facility] Comment on above: Order Comment: Order Date: 10/17/24 Order Info: 666-08 - BMP Order Info: 2856-08 - PSA Performed By: #### L 500.2500 #### [facility] [address] [place], [address] GFR/1.73 sq M.predicted among non-blacks MDRD (S/P/Bld) [Vol rate/Area] 75 mL/min/{1.73_m2} Normal >60 [facility] Comment on above: Order Comment: Order Date: 10/17/24 Order Info: 666-08 - BMP Order Info: 2856-08 - PSA Result Comment: mL/m in/1.73m2 CKD-EPI Creatinine Equation (2020) Performed By: #### L 500.2500 #### [facility] [address] [place], [address] Glucose [Mass/Vol] 85 mg/dL Normal 70-99 [facility] Comment on above: Order Comment: Order Date: 10/17/24 Order Info: 666-08 - [facility] Order Info: 2856-08 - PSA Performed By: #### L 500.2500 #### [facility] [address] [place], [address] Potassium [Moles/Vol] 4.3 mmol/L Normal 3.3-5.1 [facility] Comment on above: Order Comment: Order Date: 10/17/24 Order Info: 666-08 - BMP Order Info: 2856-08 - PSA Performed By: #### L 500.2500 #### [facility] [address] [place], [address] Sodium [Moles/Vol] 138 mmol/L Normal 133-145 [facility] Comment on above: Order Comment: Order Date: 10/17/24 Order Info: 666-08 - BMP Order Info: 2856-08 - PSA Performed By: #### L 500.2500 #### [facility] [address] [place], [address] Urea nitrogen [Mass/Vol] 19 mg/dL Normal 4-19 [facility] Comment on above: Order Comment: Order Date: 10/17/24 Order Info: 0667-1 - BMP Order Info: 2857 - PSA Performed By: #### L 500.2500 #### [facility] [address] [place], [place], [address] Carbon dioxide measurementOr dered By: Tasia Stevens on 10-17-2024 CO2 [Moles/Vol] 25.2 mmol/L 22.0-29.0 [facility] Chloride measurementOrdered By: Tasia Stevens on 10-17-2024 Chloride [Moles/Vol] 105 mmol/L 96-108 [facility] Creatinine [Moles/Vol]Ordere d By: Tasia Stevens on 10-17-2024 Creatinine [Mass/Vol] 1.1 mg/dL 0.8-1.3 [facility] GFR/1.73 sq M.predicted brittanie g non-blacks MDRD (S/P/Bld) [Vol rate/Area]Ordered By: Tasia Stevens on 10-17-2024 Estimated GFR (MDRD) Non-Af Amer 75 >60 [facility] Comment on above: mL/min/1.73m2 CKD-EP I Creatinine Equation (2020) L506.1001on 10-17-2024 Vitamin D 25-OH 22.0 ng/mL Low 30-100 [facility] Comment on above: Order Comment: Order Date: 10/17/24 Order Info: 0667-1 - BMP Order Info: 2857 - PSA Result Comment: Estephania min D Status Deficiency: <20 ng/mL (50nmol/L) Insufficiency: 20-30 ng/mL (50-75 nmol/L) Sufficiency: 30-100 ng/mL (75-250 nmol/L) Toxicity: >100 ng/mL (>250 nmol/L) Performed By: #### L 506.1001 #### [facility] [address] [place], [place], [address] No Panel InformationOrdered By: Tasia Stevens on 10-17-2024 Vitamin D 25-Hydroxy 22.0 ng/mL Low 30-100 [facility] Comment on above: Vitamin D StatusDefi ciency: <20 ng/mL (50nmol/L)Insufficiency: 20-30 ng/mL (50-75 nmol/L)Sufficiency: 30-100 ng/mL (75-250 nmol/L)Toxicity: >100 ng/mL (>250 nmol/L) PSA,Total - Annual Screenon 10-17-2024 PSA,TOT SCREEN 0.90 ng/mL Normal 0.02-4.00 [facility] Comment on above: Order Comment: Order Date: 10/17/24 Order Info: 0667-1 - BMP Order Info: 2857-1 - PSA Result Comment: This test was performed using the [employer] tPSA method. Measured values of a patient??sample can vary depending on the testing procedure used. PSA values determined on patient samples by different testing procedures cannot be used interchangeably. If there is a change in PSA assays while monitoring therapy, sequential testing should be performed to confirm baseline values. Performed By: #### L 501.9910 #### [facility] [address] [place], [address] Prostate specific antigen (P SA) screening testOrdered By: Tasia Stevens on 10-17-2024 Prostate Specific Antigen Screen 0.90 ng/mL 0.02-4.00 [facility] Comment on above: This test was perfor med using the [employer] tPSA method. Measured values of a patient sample can vary depending on the testing procedure used. PSA values determined on patient samples by different testing procedures cannot be used interchangeably. If there is a change in PSA assays while monitoring therapy, sequential testing should be performed to confirm baseline values. Serum glucose measurement (m ass/volume)Ordered By: Tasia Stevens on 10-17-2024 Glucose [Mass/Vol] 85 mg/dL 70-99 [facility] Serum or plasma anion gap de termination (moles/volume)Ordered By: Tasia Stevens on 10-17-2024 Anion gap [Moles/Vol] 8 mmol/L 5-15 [facility] Serum or plasma calcium ulysses urement (mass/volume)Ordered By: Tasia Stevens on 10-17-2024 Calcium [Mass/Vol] 9.3 mg/dL 7.6-11.0 [facility] Serum or plasma potassium me asurementOrdered By: Tasia Stevens on 10-17-2024 Potassium [Moles/Vol] 4.3 mmol/L 3.3-5.1 [facility] Serum or plasma sodium measu rement (moles/volume)Ordered By: Tasia Stevens on 10-17-2024 Sodium [Moles/Vol] 138 mmol/L 133-145 [facility] Serum or plasma urea nitroge n measurement (mass/volume)Ordered By: Tasia Stevens on 10-17-2024 Urea nitrogen [Mass/Vol] 19 mg/dL 4-19 [facility] Basophil percentageOrdered B y: Radames Stevens on 09-18-2023 Chloride [Moles/Vol] 110 mmol/L 98-107 [facility] Cholesterol [Mass/Vol] 177 mg/dL <200 [facility] Comment on above: <200 mg/dL Desirable 200-240 mg/dL Borderline >240 mg/dL High Risk Glucose [Mass/Vol] 82 mg/dL 74-106 [facility] Potassium [Moles/Vol] 3.7 mmol/L 3.5-5.1 [facility] Sodium [Moles/Vol] 139 mmol/L 136-145 [facility] Triglyceride [Mass/Vol] 88 mg/dL <199 [facility] Comment on above: The drugs N-Acetylcy steine and Metamizole may falsely depress this assay.Serum Triglycerides Reference Interval Normal <150 mg/dL Borderline high 150 - 199 mg/dL High 200 - 499 mg/dL Very High > or = 500 mg/dL High density lipoprotein (HD L) measurementOrdered By: Radames Stevens on 09-18-2023 Cholesterol in HDL (Body fld) [Mass/Vol] 41 mg/dL >40 [facility] Comment on above: The drugs N-Acetylcy steine and Metamizole may falsely depress this assay. Reference Range HDL <40 mg/dL Low HDL Cholesterol HDL >or= 60 mg/dL High HDL Cholesterol Laboratory - Chemistry and C hemistry - challengeOrdered By: Radames Stevens on 09-18-2023 CO2 [Moles/Vol] 24.0 mmol/L 21.0-32.0 [facility] Urea nitrogen/Creatinine [Mass ratio] 14.9 mg/mg 10-20 [facility] Low density lipoprotein (LDL ) cholesterol measurementOrdered By: Radames Stevens on 09-18-2023 Cholesterol in LDL (Body fld) [Moles/Vol] 118 mg/dL 0-130 [facility] No Panel InformationOrdered By: Radames Stevens on 09-18-2023 Estimated GFR (MDRD) Amer 84 mL/min >60 [facility] Comment on above: GFR Calc Estimated GFR (MDRD) Non-Af Amer 69 mL/min >60 [facility] Comment on above: Non- GFR Calc Vitamin D 25-Hydroxy 25.3 ng/mL [facility] Comment on above: Vitamin D 25(OH) Sta tus Range Deficiency <20 ng/mL (50nmol/L) Insufficiency 20 - 30 ng/mL (50 - 75 nmol/L) Sufficiency 30 - 100 ng/mL (75 - 250 nmol/L) Toxicity >100 ng/mL (>250 nmol/L) Screening prostate specific antigen (PSA) measurementOrdered By: Radames Stevens on 09-18-2023 Prostate specific Ag IA [Mass/Vol] 1.02 ng/mL 0.00-4.00 [facility] Comment on above: This test was perfor med using the TPSA assay method [facility] the[facility]. Values obtained with differentassay methods cannot be used interchangably.When changing PSA assays in the course of monitoring apatient, additional sequential testing should be carriedout to confirm baseline values. Serum or plasma calcium ulysses urement (mass/volume)Ordered By: Radames Stevens on 09-18-2023 Calcium [Mass/Vol] 8.9 mg/dL 8.5-10.1 [facility] Serum or plasma creatinine m easurement (mass/volume)Ordered By: Radames Stevens on 09-18-2023 Creatinine [Mass/Vol] 1.14 mg/dL 0.70-1.30 [facility] Comment on above: The validity of the calculated GFR & GFRAA in patients over 70 years has not been determined. Clinical correlation is essential. Serum or plasma urea nitroge n measurement (mass/volume)Ordered By: Radames Stevens on 09-18-2023 Urea nitrogen [Mass/Vol] 17 mg/dL 7-18 [facility] Thin prep Papanicolaou smear with manual screeningOrdered By: Radames Stevens on 09-18-2023 Thin prep Papanicolaou smear with manual screening 5 5-15 [facility] Very low density lipoprotein (VLDL) cholesterol measurementOrdered By: Radames Stevens on 09-18-2023 Cholesterol in VLDL Calc [Moles/Vol] 18 mg/dL 5-40 [facility] Basophil percentageOrdered B y: Dr. Stevens on 09-15-2022 Chloride [Moles/Vol] 106 mmol/L 98-107 [facility] Cholesterol [Mass/Vol] 148 mg/dL <200 [facility] Comment on above: <200 mg/dL Desirable 200-240 mg/dL Borderline >240 mg/dL High Risk Glucose [Mass/Vol] 73 mg/dL 74-106 [facility] Potassium [Moles/Vol] 4.0 mmol/L 3.5-5.1 [facility] Comment on above: Slight Hemolysis, Re sult may be falsely increased. Sodium [Moles/Vol] 140 mmol/L 136-145 [facility] Testosterone [Mass/Vol] 766.71 ng/dL [facility] Comment on above: CENTRAL 90% REFERENC E RANGES MALE AGE <50 197.44 - 669.58 ng/dL MALE AGE > or = 50 187.72 - 684.19 ng/dL FEMALE AGE <50 8.38 - 35.01 ng/dL FEMALE AGE > or = 50 <7.00 - 35.92 ng/dL Effective as of 03/16/21 Triglyceride [Mass/Vol] 138 mg/dL <199 [facility] Comment on above: The drugs N-Acetylcy steine and Metamizole may falsely depress this assay.Serum Triglycerides Reference Interval Normal <150 mg/dL Borderline high 150 - 199 mg/dL High 200 - 499 mg/dL Very High > or = 500 mg/dL WBC (Bld) [#/Vol] 6.0 10*3/uL 4.4-11.0 [facility] Blood erythrocytes count (nu mber/volume)Ordered By: Dr. Stevens on 09-15-2022 RBC (Bld) [#/Vol] 4.74 10*6/uL 4.6-6.2 [facility] Blood hemoglobin measurement (mass/volume)Ordered By: Dr. Stevens on 09-15-2022 Hemoglobin (Bld) [Mass/Vol] 14.8 g/dL 13.0-16.5 [facility] Blood platelet mean volumeOr dered By: Dr. Stevens on 09-15-2022 Platelet mean volume (Bld) [Entitic vol] 10.4 fL 6.2-12.0 [facility] Determination of erythrocyte mean corpuscular volume (MCV)Ordered By: Dr. Stevens on 09-15-2022 MCV (RBC) [Entitic vol] 92.2 fL 80-94 [facility] Hematocrit Auto (Bld) [Volum e fraction]Ordered By: Dr. Stevens on 09-15-2022 Hematocrit (Bld) [Volume fraction] 43.7 % 40-54 [facility] - Chemistry and C hemistry - challengeOrdered By: Dr. Stevens on 09-15-2022 CO2 [Moles/Vol] 25.0 mmol/L 21.0-32.0 [facility] Urea nitrogen/Creatinine [Mass ratio] 16.2 mg/mg 10-20 [facility] - Hematology and Cell countsOrdered By: Dr. Stevens on 09-15-2022 Erythrocyte distribution width (RBC) [Entitic vol] 41.0 fL 35.1-43.9 [facility] Erythrocyte distribution width (RBC) [Ratio] 12.0 % 11.6-14.6 [facility] MCH (RBC) [Entitic mass] 31.2 pg 27.0-32.0 [facility] MCHC Auto (RBC) [Mass/Vol]Or dered By: Dr. Stevens on 09-15-2022 MCHC (RBC) [Mass/Vol] 33.9 g/dL 32-36 [facility] No Panel InformationOrdered By: Dr. Stevens on 09-15-2022 Estimated GFR (MDRD) Amer 87 mL/min >60 [facility] Comment on above: GFR Calc Estimated GFR (MDRD) Non-Af Amer 72 mL/min >60 [facility] Comment on above: Non- GFR Calc Prostate Specific Antigen Screen 1.12 ng/mL 0.00-4.00 [facility] Comment on above: This test was perfor med using the TPSA assay method for the[employer] chemistry system. Values obtained with differentassay methods cannot be used interchangably.When changing PSA assays in the course of monitoring apatient, additional sequential testing should be carriedout to confirm baseline values. Thyroid Stimulating Hormone (TSH) 2.10 uIU/mL 0.358-3.74 [facility] Vitamin D 25-Hydroxy 22.0 ng/mL [facility] Comment on above: Vitamin D 25(OH) Sta tus Range Deficiency <20 ng/mL (50nmol/L) Insufficiency 20 - 30 ng/mL (50 - 75 nmol/L) Sufficiency 30 - 100 ng/mL (75 - 250 nmol/L) Toxicity >100 ng/mL (>250 nmol/L) Platelets bldOrdered By: Dr. Stevens on 09-15-2022 Platelets (Bld) [#/Vol] 206 10*3/uL 150-450 [facility] Serum or plasma calcium ulysses urement (mass/volume)Ordered By: Dr. Stevens on 09-15-2022 Calcium [Mass/Vol] 9.0 mg/dL 8.5-10.1 [facility] Serum or plasma cholesterol in HDL measurement (mass/volume)Ordered By: Dr. Stevens on 09-15-2022 Cholesterol in HDL [Mass/Vol] 41 mg/dL >40 [facility] Comment on above: The drugs N-Acetylcy steine and Metamizole may falsely depress this assay. Reference Range HDL <40 mg/dL Low HDL Cholesterol HDL >or= 60 mg/dL High HDL Cholesterol Serum or plasma cholesterol in VLDL measurement (mass/volume)Ordered By: Dr. Stevens on 09-15-2022 Cholesterol in VLDL [Mass/Vol] 28 mg/dL 5-40 [facility] Serum or plasma creatinine m easurement (mass/volume)Ordered By: Dr. Stevens on 09-15-2022 Creatinine [Mass/Vol] 1.11 mg/dL 0.70-1.30 [facility] Comment on above: The validity of the calculated GFR & GFRAA in patients over 70 years has not been determined. Clinical correlation is essential. Serum or plasma low density lipoprotein (LDL) cholesterol measurement (mass/volume)Ordered By: Dr. Stevens on 09-15-2022 Cholesterol in LDL [Mass/Vol] 79 mg/dL 0-130 [facility] Serum or plasma urea nitroge n measurement (mass/volume)Ordered By: Dr. Stevens on 09-15-2022 Urea nitrogen [Mass/Vol] 18 mg/dL 7-18 [facility] Thin prep Papanicolaou smear with manual screeningOrdered By: Dr. Stevens on 09-15-2022 Thin prep Papanicolaou smear with manual screening 9 5-15 [facility] CNPNon 08-25-2021 CNPN Telephone (BEE) NICOLE RODRIGUEZ ([id number]) 1960 M Date Time Provider Department 08/25/21 LAKSHMI SUNSHINE During your visit today, we recorded the following information about you: Lup[place] Mendo[place] [facility] [place] 5:57 PM Signed FYI: the following message was copied into patient chart from the wait list. Left knee pain/replacement consult. Appointment was scheduled for 09/07/21 by patient's insurance carrier. Tova woo [place] wanted us to be aware that the patient is very upset that he cannot have his surgery with his preferred doctor and his attitude may reflect that when he comes in. Allergies As of Date: 08/25/2021 Noted Allergy Reaction CODEINE 08/16/2018 1 - Mental Status Change 16 - Unknown Date Reviewed: 08/22/2018 Reviewed by: Harinder Foss - Fully Assessed Reason for Visit: Patient Update [1234] Prescriptions as of 09/28/2021 - aspirin, enteric coated (ASPIRIN, ENTERIC COATED) 81 mg EC tablet Take 81 mg by mouth once daily. Problem List As Of Date: 08/25/2021 (None) Encounter Status:Closed by SHERI LAKELUPILLO on 09/28/21 Normal [facility] MRI KNEE WO IVCON LTon 01-04 MRI KNEE WO IVCON LT * * *Final Report* * * DATE OF EXAM: Jan 04 2021 10:43AM WRM [id number] - MRI KNEE WO IVCON LT / PROCEDURE REASON: MRI Knee * * * * Physician Interpretation * * * * EXAMINATION: MRI LEFT KNEE WITHOUT CONTRAST CLINICAL HISTORY: Left medial knee pain. No known injury. Concern for internal derangement. TECHNIQUE: Routine non-contrast MRI of the knee MQ: [id number] COMPARISON: None RESULT: MENISCI: Medial Meniscus: Complex tear in the anterior horn, body and posterior horn with horizontal predominant component and background degeneration. Mild meniscal extrusion. Suspected flipped fragment into the inferior gutter at the level of the meniscal body. No free fragment identified. Lateral Meniscus: Complex tear in the posterior horn and body with horizontal predominant component and background degeneration. No meniscal extrusion. No free or flipped meniscal fragment. LIGAMENTS: ACL: Intact with mucoid degeneration PCL: Intact MCL: Intact LCL Complex: Intact CARTILAGE: Medial Femoral Condyle: Large area(s) of full thickness cartilage loss/fissuring with subchondral marrow reactive/cystic changes Medial Tibial Plateau: Moderate sized area(s) of full thickness cartilage loss and or fissuring with subchondral marrow reactive/cystic changes Lateral Femoral Condyle: Normal Lateral Tibial Plateau: Normal Patella: Moderate sized area(s) of predominantly low grade (less than 50% thickness) cartilage loss and or fissuring with smaller area(s) of full thickness cartilage loss and or fissuring at the patellar apex with subchondral marrow reactive/cystic changes Trochlea: Small area(s) of low grade (less than 50% thickness) partial thickness cartilage loss and or fissuring TENDONS: The distal quadriceps and patellar tendons are intact. The popliteus tendon is intact. BONES AND MARROW: Subchondral marrow edema in the medial femoral condyle and medial tibial plateau, may be reactive. Question of slight flattening/irregulari ty of the medial aspect of the medial tibial plateau overlying the area of subchondral marrow edema, suggests a subtle subchondral insufficiency fracture. No evidence of bone marrow replacing process. MUSCLES: Muscle bulk and signal intensity are normal. JOINT FLUID AND SYNOVIUM: Small joint effusion. Mild synovitis. Small Garza's cyst. OTHER: No other significant abnormality identified. Localizer images: No additional findings. IMPRESSION: TRICOMPARTMENTAL OSTEOARTHRITIS, SEVERE IN THE MEDIAL COMPARTMENT. TINY SUBCHONDRAL TRABECULAR FRACTURE IN THE MEDIAL TIBIAL PLATEAU. DEGENERATION AND COMPLEX TEARING OF THE MENISCI. Telemarketing Fundraiser: FITO Transcribe Date/Time: Jan 04 2021 10:48A Dictated by : RONAK YIN, This examination was interpreted and the report reviewed and electronically signed by: ZEO ISIDRO MD on Jan 04 2021 1:31PM EST [id number] Normal [facility] CNCOon 12-31-2018 CNCO Letter Text Normal [facility] PROGRESSon 08-22-2018 Protein mass conc HNO ID: [id number] Author: Harinder Foss Service: (none) Author Type: Physician Type: Progress Notes Filed: 08/22/2018 1:36 PM Note Text: Nicole Rodriguez is a 58 year old male here for color changes and skin loss with cold temperatures on the tips of his toes. HPI: This is a gentleman who for a number of years has noticed that he gets some skin discoloration at the tips of his toes during cold weather. This is usually a bluish discoloration and he states that over the last year or so he has had an episode or 2 where the tip of his toe actually turn black and the skin will slough. This does heal underneath there but he does have some darkish color changes where this is happened in the past. He truly denies any claudication or rest pain symptomatology although he does give symptoms when the color changes occur in his toes. He denies any type of other issues although he does get some burning and tingling pain when the color changes occur. He states that in the summer months he barely notices this even if he is changing temperature or coming in and out of water. He really does not find that the summertime bothers him much at all but the winter time is much more problematic. He does have some skin that is sloughing off one of his toes at this time. MEDICATIONS: Current Outpatient Prescriptions: aspirin, enteric coated (ASPIRIN, ENTERIC COATED) 81 mg EC tablet Take 81 mg by mouth once daily. Disp: Rfl: No current facility-administered medications for this visit. ALLERGIES Allergen Reactions - Codeine Mental Status Change, Unknown BP 132/70 Pulse 80 Resp 18 Ht 6' 0 (1.83m) Wt 187 lb (84.8kg) BMI 25.36 kg/(m2). PHYSICAL EXAM: Well-developed well-nourished white male he is alert and oriented person place and time in no acute distress time the examination. He has no evidence of any decreased pulses in either lower extremity. He has palpable femoral popliteal and tibial pulses and we confirmed good flow at the foot level with the Doppler. At this point in time he does have some discoloration of her couple of the toes and there is some skin loss at the tip of one of his great toes that is dry and healing. He has no evidence of any open sores or ulcerations. He has no clubbing or cyanosis noted. He has no similar changes of his fingers at this time. His rate is regular and this does not sound like an embolic phenomenon. ASSESSMENT: This patient most likely has Raynaud's syndrome/disease with some evidence of tissue loss and gangrene that is minimal at this time. I discussed this at some length with him and we talked about a number of different things that he can do to try to prevent cold exacerbation and we discussed some of the things that we need to do to try to further evaluate and work this up. PLAN: My plan is to get him lower extremity arterial Dopplers with plethysmographic waveforms and cold stimulation. He would like this performed closer to his home in [place] and we will therefore try to get this arranged at the [facility]. At this point in time pending the results of that workup I would like to also send him for some testing including CRP SR and and a titers. We will also do a little bit more rheumatologic and autoimmune workup at that point. If this does appear to be cold-induced we will further discuss the types of things that we can do including foot warmers and procedures this electric shocks and the like that he continues to try to keep the tissue warm and prevent exacerbations. He also might be a candidate for low-dose of something like a calcium channel minesh to see if this would help or even something like play told to see if this would help but he is very opposed to this point in time to considering medication. At this point the patient does not appear to be severely limited by this but is concerned that this is going to spread throughout his body and that he is going to start to lose fingers toes the wound hands and I tell him that he probably is not in risk of this. He does smoke cigars but this does not look like Buerger's disease from the current presentation. FOLLOW UP: Patient is to follow-up with me in our [place] office after he has had noninvasive testing performed at the [facility]. We are going to check on Monday to make sure that we order this right when we are at the facility and once we have checked to make sure what we need to order we will put those orders and contact the patient with regard to scheduling. He seems satisfied with this plan and is also very happy to follow-up at the [facility] as he lives much closer to their than here. [facility] Office Visit (AGVASACC) NICOLE RODRIGUEZ ([id number]) 1960 M Date Time Provider Department 08/20/18 11:15 AM HARINDER FOSS During your visit today, we recorded the following information about you: Pulse Respiration Blood pressure Weight 80/minute 18/minute 132/70 84.8 kg Height 1.829 m Harinder Foss MD 08/22/2018 1:36 PM Signed Nicole Rodriguez is a 58 year old male here for color changes and skin loss with cold temperatures on the tips of his toes. HPI: This is a gentleman who for a number of years has noticed that he gets some skin discoloration at the tips of his toes during cold weather. This is usually a bluish discoloration and he states that over the last year or so he has had an episode or 2 where the tip of his toe actually turn black and the skin will slough. This does heal underneath there but he does have some darkish color changes where this is happened in the past. He truly denies any claudication or rest pain symptomatology although he does give symptoms when the color changes occur in his toes. He denies any type of other issues although he does get some burning and tingling pain when the color changes occur. He states that in the summer months he barely notices this even if he is changing temperature or coming in and out of water. He really does not find that the summertime bothers him much at all but the winter time is much more problematic. He does have some skin that is sloughing off one of his toes at this time. MEDICATIONS: Current Outpatient Prescriptions: aspirin, enteric coated (ASPIRIN, ENTERIC COATED) 81 mg EC tablet Take 81 mg by mouth once daily. Disp: Rfl: No current facility-administered medications for this visit. ALLERGIES Allergen Reactions - Codeine Mental Status Change, Unknown BP 132/70 Pulse 80 Resp 18 Ht 6' 0 (1.83m) Wt 187 lb (84.8kg) BMI 25.36 kg/(m2). PHYSICAL EXAM: Well-developed well-nourished white male he is alert and oriented person place and time in no acute distress time the examination. He has no evidence of any decreased pulses in either lower extremity. He has palpable femoral popliteal and tibial pulses and we confirmed good flow at the foot level with the Doppler. At this point in time he does have some discoloration of her couple of the toes and there is some skin loss at the tip of one of his great toes that is dry and healing. He has no evidence of any open sores or ulcerations. He has no clubbing or cyanosis noted. He has no similar changes of his fingers at this time. His rate is regular and this does not sound like an embolic phenomenon. ASSESSMENT: This patient most likely has Raynaud's syndrome/disease with some evidence of tissue loss and gangrene that is minimal at this time. I discussed this at some length with him and we talked about a number of different things that he can do to try to prevent cold exacerbation and we discussed some of the things that we need to do to try to further evaluate and work this up. PLAN: My plan is to get him lower extremity arterial Dopplers with plethysmographic waveforms and cold stimulation. He would like this performed closer to his home in [place] and we will therefore try to get this arranged at the [facility]. At this point in time pending the results of that workup I would like to also send him for some testing including CRP SR and and a titers. We will also do a little bit more rheumatologic and autoimmune workup at that point. If this does appear to be cold-induced we will further discuss the types of things that we can do including foot warmers and procedures this electric shocks and the like that he continues to try to keep the tissue warm and prevent exacerbations. He also might be a candidate for low-dose of something like a calcium channel minesh to see if this would help or even something like play told to see if this would help but he is very opposed to this point in time to considering medication. At this point the patient does not appear to be severely limited by this but is concerned that this is going to spread throughout his body and that he is going to start to lose fingers toes the wound hands and I tell him that he probably is not in risk of this. He does smoke cigars but this does not look like Buerger's disease from the current presentation. FOLLOW UP: Patient is to follow-up with me in our [place] office after he has had noninvasive testing performed at the [facility]. We are going to check on Monday to make sure that we order this right when we are at the facility and once we have checked to make sure what we need to order we will put those orders and contact the patient with regard to scheduling. He seems satisfied with this plan and is also very happy to follow-up at the [facility] as he lives much closer to their than here. Harinder Foss MD Referring Provider: TASIA STEVENS [[id number]] Allergies As of Date: 08/20/2018 Noted Allergy Reaction CODEINE 08/16/2018 1 - Mental Status Change 16 - Unknown Date Reviewed: 08/20/2018 Reviewed by: Keerthi Farrell LPN - Fully Assessed Reason for Visit: New Patient Evaluation [154] Cmt: Rfd by Dr. Stevens for pain,discoloration in toes. Primary Visit Diagnosis:Raynaud's phenomenon with gangrene (HCC) [I73.01] Order(s):US LEG ARTERIAL PERIPH [facility] [[id number]] Order #: [id number] FUTURE Prescriptions as of 08/20/2018 Sig: ASPIRIN 81 MG TABLET,DELAYED * Take 81 mg by mouth once alonso* Problem List As Of Date: 08/20/2018 (None) Letter Text Encounter Status:Closed by HARINDER FOSS MD on 08/22/18 Normal [facility] Encounters Encounter Date Encounter Type Care Provider Facility Start: 10-17-2024 End: 10-17-[address] Tasia Stevens MD Work Phone: [place] Work Phone: Start: 10-17-2024 End: 10-17-[address] Tasia Stevens MD -[facility] Start: 10-17-2024 End: 10-17-2024 ambulatory Tasia Stevens Facility:[facility] Start: 09-18-2023 End: 09-18-2023 ambulatory [facility] Work Phone: Start: 09-18-2023 End: 09-18-2023 Patient encounter procedure [facility] Start: 09-15-2022 End: 09-15-2022 ambulatory [facility] Work Phone: Start: 09-15-2022 End: 09-15-2022 Patient encounter procedure [facility] Start: 12-14-2018 Patient encounter procedure HARINDER FOSS Facility:[facility] Start: 11-09-2018 Patient encounter procedure HARINDER FOSS Facility:[facility] Start: 09-21-2018 Patient encounter procedure HARINDER FOSS Facility:[facility] Start: 08-20-2018 End: 08-20-2018 Patient encounter procedure HARINDER FOSS Facility:[facility] Payers Date Payer Category Payer Self-pay [id number] 2024 Unknown [id number] 1960 Unknown [id number] 2.16.8 [id number] 1960 Unknown [id number] 2.16.8 [id number] 1960 Unknown [id number] 2.16.8 [id number] 1960 Unknown [id number] 2.16.8 [id number] Unknown [id number] Unknown [id number] Unknown [employer] TPA [id number] Unknown [id number] Unknown [id number] 2.16.8 [id number] Social History Date Type Detail Facility Start: 09-20-2021 Tobacco smoking stat [facility] Unknown if ever smoked [place] Start: 1960 Sex Assigned At Male [facility] Start: [facility]20[facility] [place] Start: 10-29-2024 Sex Male (finding) [facility] Progress note 01-04-2021 Note Date & Type Note Facility 01-04-2021 Note HNO ID: [id number] Author: ARIN Burrell) Service: ? Author Type: [facility] Swamper Type: Progress Notes Filed: 01/04/2021 10:19 AM Note Text: Radiology Service Progress Note PATIENT NAME: Nicole Rodriguez DATE OF SERVICE: January 04, 2021 TIME: 10:19 AM PATIENT IDENTITY VERIFICATION COMPLETED USING TWO (2) IDENTIFIERS: Name and Date of confirmed by patient verbally. FALL SCREENING: Has the patient had 2 falls in the last year or 1 fall with injury or currently using an Ambulatory Assistive Device (Walker, Cane, Wheelchair, Crutches, etc.)? No PATIENT GENDER DATA: Male PATIENT RELEVANT IMPLANT DATA REVIEWED: Yes RADIOLOGY DEPARTMENT: MR; Exam(s) Completed: Lower MSK: Knee, left PERIPHERAL IV DATA: Not applicable SIGNED BY: RT Ashanti(Brooks) January 04, 2021 10:19 AM [facility] Evaluation note Note Date & Type Note Facility Evaluation note No assessment information availa ble [facility] Work Phone: Reason for referral (narrative) Note Date & Type Note Facility Reason for referral (narrative) No reason for referral information available [facility] Work Phone: Summary Purpose Family History No Family History Records FoundNo Family History Records FoundNo Family History Records FoundNo Family History Records Found Advance Directives Advance Directive Response Recorded Date/ Time Living Will No September 20 6:24am Power of Drain Tiler No September 20, 2021 6:24am Additional Source Comments (unrecognized sect ion and content) No Status Records FoundNo Status Records FoundNo Status Records FoundNo Status Records Found INFORMATION SOURCE (unrecogn ized section and content) DATE CREATED AUTHOR [facility] DATE CREATED AUTHOR AUTHOR'S ORGANIZ ATION 01/11/2019 [facility] DATE CREATED AUTHOR AUTHOR'S ORGANIZ ATION 09/29/2021 [facility] DATE CREATED AUTHOR AUTHOR'S ORGANIZ ATION 10/31/2024 [facility] Care Teams (unrecognized sec tion and content) Team Status: Active Member Role Status Dates Dr. Radames Stevens MD Family Provider Active Dr. Radames Stevens MD Primary Care Provider Activ e Team Status: Inactive Member Role Status Dates Dr. Radames Stevens MD Primary Care Provider, Attending Provider, Referring Provider Active Team Status: Inactive Member Role Status Dates Dr. Radames Stevens MD Primary Care Provider, Atte nding Provider Active Team Status: Active Member Role Status Dates Dr. Tasia Stevens MD Family Provider Active Dr. Tasia Stevens MD Primary Care Provider Acti ve Team Status: Inactive Member Role Status Dates Dr. Tasia Stevens MD Primary Care Provider Acti ve Start: October 17, 2024 End: October 17, 2024 Dr. Tasia Stevens MD Attending Provider Active Start: October 17, 2024 End: October 17, 2024 Dr. Tasia Stevens MD Referring Provider Active Start: October 17, 2024 End: October 17, 2024 Goals (unrecognized section and content) Goals may be documented in a n alternate sectionGoals may be documented in an alternate sectionGoals may be documented in an alternate section FOR RECORDS PERTAINING TO PATIENTS WHO ARE OR HAVE BEEN ENROLLED IN A CHEMICAL DEPENDENCY/SUBSTANCEABUSE PROGRAM, SOME INFORMATION MAY BE OMITTED. This clinical summary was aggregated from multiple sources. Caution should be exercised in using it in the provision of clinical care. This summary normalizes information from multiple sources, and as a consequence, information in this document may materially change the coding, format and clinical context of patient data. In addition, data may be omitted in some cases. CLINICAL DECISIONS SHOULD BE BASED ON THE PRIMARY CLINICAL RECORDS. [facility]. provides no warranty or guarantee of the accuracy or completeness of information in this document.
== END | disposition home or self-care (01) ==
LOC: CVS 08:51
PROVIDERS: PCP Family Medicine; Referring Provider Student in an Organized Health Care Education/Training Program; Visit Provider Student in an Organized Health Care Education/Training Program
DX: I77.810 Thoracic aortic ectasia (principal)
CPT/HCPCS: 93306